=== PATIENT | female | born 1970 | race African-American/Black ===

== ENCOUNTER 2019-08-26 13:47 | Emergency (ER) | payer OTHER ==
[~2019-08-26] VITALS: Ht 154.9 cm; Wt 56.8 kg
[~2019-08-26 13:47] MED LIST: ALBU8.5H3 IH; ALBUTEROL INH; BENZ-51 PO; GUAI-787 PO; IPRAHFA IH; LEVO-72 PO; OMEP20 PO; PRED10 PO
[2019-08-26 14:03] VITALS: BP 120/74
== END 2019-08-26 15:10 | disposition home or self-care (01) ==
LOC: EMS 13:51
DX: Z76.0 Encounter for issue of repeat prescription (principal); J45.909 Unspecified asthma, uncomplicated; F41.9 Anxiety disorder, unspecified; F32.9 Major depressive disorder, single episode, unspecified; F20.9 Schizophrenia, unspecified; F12.90 Cannabis use, unspecified, uncomplicated

== ENCOUNTER 2020-03-08 12:57 | Emergency (ER) | payer OTHER ==
[~2020-03-08] VITALS: Ht 165.1 cm; Wt 22.7 kg
[2020-03-08] MEDS ORDERED: ALBUTEROL SULFATE HFA 90 MCG/PUFF 8 GM INHALER IH ONE (14:00)
[2020-03-08] MEDS ORDERED: DEXAMETHASONE 4 MG TABLET PO ONE (14:00)
[2020-03-08 14:02] VITALS: BP 132/63
== END 2020-03-08 14:24 | disposition home or self-care (01) ==
LOC: EMS 13:06
DX: J45.901 Unspecified asthma with (acute) exacerbation (principal); F41.9 Anxiety disorder, unspecified; F32.9 Major depressive disorder, single episode, unspecified; F20.9 Schizophrenia, unspecified; Z79.899 Other long term (current) drug therapy
CPT/HCPCS: 94640; 99283; J8540; J3535

== ENCOUNTER 2020-10-01 05:18 | Emergency (ER) | payer OTHER ==
[~2020-10-01] VITALS: Ht 165.1 cm; Wt 47.7 kg
[~2020-10-01 05:18] MED LIST changes: -BENZ-51 PO; +BENZ-70 PO
[2020-10-01 05:35] VITALS: BP 141/83
== END 2020-10-01 06:10 | disposition left against medical advice (07) ==
LOC: EMS 05:20
DX: R07.89 Other chest pain (principal); F32.9 Major depressive disorder, single episode, unspecified; F20.9 Schizophrenia, unspecified; F12.90 Cannabis use, unspecified, uncomplicated
CPT/HCPCS: 93005; 99283

== ENCOUNTER 2021-02-14 07:58 | Emergency (ER) | payer OTHER ==
[~2021-02-14] VITALS: Ht 165.1 cm; Wt 50.0 kg
[2021-02-14 09:14] LABS: BASOPHILS % (AUTO) 1.3 % (0.0-2.0); EOSINOPHILS % (AUTO) 1.8 % (1.0-6.0); HEMATOCRIT 35.5 % (36-46); HEMOGLOBIN 10.8 g/dL (12.0-16.0); LYMPHOCYTES # (AUTO) 1.6 K/uL (1.0-4.8); LYMPHOCYTES % (AUTO) 21.2 % (22.0-44.0); MEAN CORPUSCULAR HEMOGLOBIN 20.3 pg (26.0-34.0); MEAN CORPUSCULAR HGB CONC 30.4 G/dL (31.0-37.0); MEAN CORPUSCULAR VOLUME 67 fL (80-100); MONOCYTES # (AUTO) 0.7 K/uL (0.1-1.0); MONOCYTES % (AUTO) 8.5 % (2.0-9.0); NEUTROPHILS # (AUTO) 5.2 K/uL (1.8-7.7); NEUTROPHILS % (AUTO) 67.2 % (40.0-70.0); PLATELET COUNT (AUTO) 399 K/uL (150-450); RED CELL DISTRIBUTION WIDTH 19.5 % (11.5-14.5)
[2021-02-14 09:23] LABS: ANION GAP 11 mmol/L (8-16); CALCIUM, TOTAL 9.4 mg/dL (8.8-10.5); CARBON DIOXIDE 29 mmol/L (22-29); CHLORIDE 104 mmol/L (98-107); CREATININE 0.93 mg/dL (0.60-1.30); GLOMERULAR FILTR. RATE CALC > 60 mL/min (>60); GLUCOSE,RANDOM 115 mg/dL (70-110); POTASSIUM 3.8 mmol/L (3.5-5.1); SODIUM SERUM 144 mmol/L (136-145); UREA NITROGEN, BLOOD 15 mg/dL (7-18)
[2021-02-14 09:34] LABS: ALANINE AMINOTRANSFERASE 20 U/L (12-78); ALBUMIN 4.2 g/dL (3.4-5.0); ALKALINE PHOSPHATASE 94 U/L (46-116); ASPARTATE AMINOTRANSFERASE 22 U/L (15-37); BILIRUBIN,TOTAL 0.4 mg/dL (0.1-1.0); HCG,QUANTITATIVE 3 mIU/mL (0-6); TOTAL PROTEIN, SERUM 9.1 g/dL (6.4-8.2)
[2021-02-14 11:34] VITALS: BP 138/88
== END 2021-02-14 11:36 | disposition home or self-care (01) ==
LOC: EMS 07:58
DX: R45.1 Restlessness and agitation (principal); R45.851 Suicidal ideations; J45.909 Unspecified asthma, uncomplicated; F32.A Depression, unspecified; F20.9 Schizophrenia, unspecified; F81.9 Developmental disorder of scholastic skills, unspecified; F12.90 Cannabis use, unspecified, uncomplicated
CPT/HCPCS: 36415; 80053; 84702; 85025; 99285; G0480

== ENCOUNTER 2021-03-21 09:48 | Emergency (ER) | payer OTHER ==
[~2021-03-21] VITALS: Ht 165.1 cm; Wt 50.0 kg
[2021-03-21] MEDS ORDERED: ALBUTEROL SULFATE 5 MG/ML 20 ML NEB SOLN [BULK] NEB ONE ×2 (10:15→11:30)
[2021-03-21] MEDS ORDERED: IPRATROPIUM BROMIDE 0.5 MG/2.5 ML NEB SOLUTION NEB ONE (10:15)
[2021-03-21] MEDS ORDERED: PredniSONE 20 MG TABLET PO ONE (10:15)
[2021-03-21 13:21] VITALS: BP 140/72
[2021-03-21 13:22] LABS: COVID AG,FIA SOURCE NASOPHARYNGEAL
== END 2021-03-21 13:31 | disposition left against medical advice (07) ==
LOC: EMS 09:52
DX: J45.909 Unspecified asthma, uncomplicated (principal); F32.9 Major depressive disorder, single episode, unspecified; F20.9 Schizophrenia, unspecified; F41.9 Anxiety disorder, unspecified; Z79.899 Other long term (current) drug therapy; Z20.822 Contact with and (suspected) exposure to COVID-19
CPT/HCPCS: 71045; 82962; 87426; 93005; 94640; 94644; 99285; J7512; U0003

== ENCOUNTER 2022-05-23 17:28 | Emergency (ER) | payer OTHER ==
[~2022-05-23] VITALS: Ht 160 cm; Wt 61.4 kg
[~2022-05-23 17:28] MED LIST changes: +BENZ-227 PO; -BENZ-70 PO; +PRED-729 PO; -PRED10 PO
[2022-05-23] MEDS ORDERED: PredniSONE 20 MG TABLET PO ONE (17:45)
[2022-05-23] MEDS ORDERED: ALBUTEROL SULFATE 2.5 MG/0.5 ML NEB SOLUTION NEB ONE (17:45)
[2022-05-23] MEDS ORDERED: IPRATROPIUM BROMIDE 0.5 MG/2.5 ML NEB SOLUTION NEB ONE (17:45)
[2022-05-23] MEDS ORDERED: 0.9% SODIUM CHLORIDE 5 ML NEB SOLUTION NEB ONE (17:46)
[2022-05-23 17:52] VITALS: BP 185/96
[2022-05-23 18:16] LABS: BASOPHILS % (AUTO) 0.7 % (0.0-2.0); EOSINOPHILS % (AUTO) 5.7 % (1.0-6.0); HEMATOCRIT 34.8 % (36-46); HEMOGLOBIN 10.4 g/dL (12.0-16.0); LYMPHOCYTES # (AUTO) 1.4 K/uL (1.0-4.8); LYMPHOCYTES % (AUTO) 12.4 % (22.0-44.0); MEAN CORPUSCULAR HEMOGLOBIN 21.3 pg (26.0-34.0); MEAN CORPUSCULAR HGB CONC 29.8 G/dL (31.0-37.0); MEAN CORPUSCULAR VOLUME 72 fL (80-100); MONOCYTES # (AUTO) 0.8 K/uL (0.1-1.0); MONOCYTES % (AUTO) 6.5 % (2.0-9.0); NEUTROPHILS # (AUTO) 8.7 K/uL (1.8-7.7); NEUTROPHILS % (AUTO) 74.7 % (40.0-70.0); PLATELET COUNT (AUTO) 355 K/uL (150-450); RED BLOOD CELL COUNT(AUTO) 4.87 MIL/uL (4.00-5.20); RED CELL DISTRIBUTION WIDTH 20.7 % (11.5-14.5)
[2022-05-23 18:22] LABS: ANION GAP 7 mmol/L (8-16); CALCIUM, TOTAL 9.3 mg/dL (8.8-10.5); CARBON DIOXIDE 31 mmol/L (22-29); CHLORIDE 103 mmol/L (98-107); CREATININE 0.75 mg/dL (0.60-1.30); GLUCOSE,RANDOM 107 mg/dL (70-110); POTASSIUM 3.4 mmol/L (3.5-5.1); SODIUM SERUM 141 mmol/L (136-145); UREA NITROGEN, BLOOD 11 mg/dL (7-18)
[2022-05-23 18:28] LABS: ALANINE AMINOTRANSFERASE 30 U/L (12-78); ALBUMIN 4.1 g/dL (3.4-5.0); ALKALINE PHOSPHATASE 124 U/L (46-116); ASPARTATE AMINOTRANSFERASE 23 U/L (15-37); BILIRUBIN,TOTAL 0.2 mg/dL (0.1-1.0)
[2022-05-23 18:41] LABS: GLOMERULAR FILTR. RATE CALC > 60 mL/min (>60)
[2022-05-23 18:42] LABS: B-TYPE NATRIURETIC PEPTIDE 51 pg/mL (0-100)
== END 2022-05-23 19:37 | disposition left against medical advice (07) ==
LOC: EMS 17:29
DX: J45.901 Unspecified asthma with (acute) exacerbation (principal); F41.9 Anxiety disorder, unspecified; F32.A Depression, unspecified; F20.9 Schizophrenia, unspecified; Z98.890 Other specified postprocedural states
CPT/HCPCS: 99284; 80053; 83880; 84484; 85025; 36415; 94640; 93005; J7512